=== PATIENT | male | born 1970 | race Caucasian/White ===

== ENCOUNTER 2017-11-27 14:08 | Emergency (ER) | payer OTHER ==
[2017-11-27 14:20] LABS: BASOPHIL (%) 0.3 % (0-1); EOSINOPHIL (%) 0.3 % (0-5); HEMATOCRIT 45.6 % (38.0-50.0); HEMOGLOBIN 15.2 G/DL (12.5-16.6); IMMATURE GRANULOCYTE (%) 1.1 % (0.0-0.7); LYMPHOCYTE (%) 19.4 % (15-42); LYMPHOCYTE COUNT 1.9 K/uL (1.0-2.8); MCHC 33.3 G/DL (30.0-36.0); MONOCYTE (%) 8.9 % (3-12); MONOCYTE COUNT 0.9 K/uL (0-0.8); NEUTROPHIL COUNT 6.8 K/uL (1.8-6.4); PLATELET COUNT 212 K/uL (156-360); RBC DIS.WIDTH-CV 11.7 % (11.8-14.6); RBC DIS.WIDTH-SD 37.3 % (39-53); RED BLOOD COUNT 5.24 M/uL (4.00-5.50); WHITE BLOOD COUNT 9.8 K/uL (4.1-10.2)
[2017-11-27 14:28] LABS: AMYLASE 33 IU/L (1-118); CHLORIDE 102 mEq/L (99-109); POTASSIUM 4.8 mEq/L (3.7-5.4); SODIUM 137 mEq/L (136-147)
[2017-11-27 14:29] LABS: GLUCOSE 126 mg/dL (70-99)
[2017-11-27 14:33] LABS: CREATININE 0.9 mg/dL (0.6-1.3); SERUM ETHYL ALCOHOL < 10 mg/dL
[2017-11-27 14:34] LABS: GFR ESTIMATE (CALCULATED) > 59 mL/min/ (58.99-99999); UREA NITROGEN (BUN) 18 mg/dL (9-23)
[2017-11-27 14:36] LABS: LIPASE 21 U/L (1.0-51.0)
[2017-11-27 15:30] LABS: APPEARANCE CLEAR ((CLEAR)); BILIRUBIN NEGATIVE; BLOOD NEGATIVE; COLOR YELLOW ((YELLOW)); GLUCOSE (STRIP) NEGATIVE; KETONES NEGATIVE; LEUKOCYTES NEGATIVE; NITRITE NEGATIVE; PROTEIN (STRIP) NEGATIVE; UCUL ADDED? NO; UROBILINOGEN 0.2 MG/DL (0.2-1.0)
[2017-11-27 15:43] LABS: AMPHETAMINE NEGATIVE (500 ng/mL); BARBITURATES NEGATIVE (200 ng/mL); BENZODIAZEPINES NEGATIVE (150 ng/mL); BUPRENORPHINE NEGATIVE (10 ng/mL); COCAINE NEGATIVE (150 ng/mL); METHADONE NEGATIVE (200 ng/mL); METHAMPHETAMINE NEGATIVE (500 ng/mL); OPIATES (MORPHINE) NEGATIVE (100 ng/mL); OXYCODONE NEGATIVE (100 ng/mL); PHENCYCLIDINE NEGATIVE (25 ng/mL); PROPOXYPHENE NEGATIVE (300 ng/mL); THC CANNABINOIDS NEGATIVE (50 ng/mL); TRICYCLIC ANTIDEPRESSANTS NEGATIVE (300 ng/mL)
[2017-11-27] MEDS ORDERED: PERCOCET 5/31 TABLET PO (16:34)
[2017-11-27] MEDS ORDERED: MOTRIN800 MG PO (16:34)
== END 2017-11-27 17:29 | disposition home or self-care (01) ==
LOC: TRA 14:08
PROVIDERS: Emergency Medicine
PROC: 0QSGXZZ Reposition Right Tibia, External Approach (ICD-10-PCS; principal; 2017-11-27)
DX: S22.20XA Unspecified fracture of sternum, initial encounter for closed fracture (principal); S82.151A Displaced fracture of right tibial tuberosity, initial encounter for closed fracture; S09.90XA Unspecified injury of head, initial encounter; V43.63XA Car passenger injured in collision with pick-up truck in traffic accident, initial encounter; M54.2 Cervicalgia; S50.312A Abrasion of left elbow, initial encounter; V47.6XXA Car passenger injured in collision with fixed or stationary object in traffic accident, initial encounter; Y92.410 Unspecified street and highway as the place of occurrence of the external cause; E78.5 Hyperlipidemia, unspecified; I10 Essential (primary) hypertension
CPT/HCPCS: 70450; 71260; 72125; 72129; 72132; 73552; 73560; 73590; 73700; 74177; 80048; 81003; 82150; 83690; 85025; 86850; 86900; 86901; G0480; J2250; J3010